=== PATIENT | male | born 1935 | race Caucasian/White ===

== ENCOUNTER 2019-04-19 09:44 | Inpatient (IN) | payer OTHER ==
[~2019-04-19] VITALS: Ht 152.4 cm; Wt 90.9 kg
[2019-04-19 09:45] VITALS: BP 89/58
[2019-04-19] MEDS ORDERED: ALEVE220 MG PO (10:02)
[2019-04-19] MEDS ORDERED: ASPIR 8181 M1 PO (10:02)
[2019-04-19 10:12] LABS: HEMOGLOBIN 12.3 gm/dL (14.0-18.0); MCH 31.8 pg (26.0-34.0); MCHC 34.1 g/dL (28.0-37.0); MCV 93.4 fL (80.0-100.0); PLATELET COUNT 210 thou/uL (150-400); RBC 3.86 mil/uL (4.50-6.00); RDW 14.8 % (10.5-14.5); WBC 10.2 thou/uL (4.0-11.0)
[2019-04-19 10:15] LABS: CALCIUM 8.8 mg/dL (8.5-10.1); CREATININE 1.3 mg/dL (0.7-1.3); POTASSIUM 4.2 mmol/L (3.5-5.1)
[2019-04-19 10:21] LABS: ALBUMIN 3.3 g/dL (3.4-5.0); TOTAL BILIRUBIN 0.7 mg/dL (<0.1-1.0); TOTAL PROTEIN 7.9 g/dL (6.4-8.2)
[2019-04-19 10:24] LABS: APTT 27.5 Seconds (24.5-32.8); INR 1.1; PROTIME 11.4 Seconds (9.3-11.4)
[2019-04-19 11:01] LABS: ATYPICAL LYMPHS 5 %
[2019-04-19 11:02] LABS: ANISOCYTOSIS 1+
[2019-04-19 11:03] LABS: POLYCHROMASIA OCCASIONAL
--- NOTE | 2019-04-19 11:04 | NUR ---
AT BEDSIDE; REPORTS [employer]EL[employer] WILL BE AVAILABLE AT 1230 TODAY
[2019-04-19] MEDS ORDERED: METFORMIN HCL500 MG PO (13:10)
[2019-04-19 13:26] VITALS: BP 124/64
--- NOTE | 2019-04-19 13:34 | NUR ---
PT TO ROOM 352 P EGD
--- NOTE | 2019-04-19 13:55 | 2DMMODE ---
[facility] [place] [place] [address] 2 D/M-MODE ECHOCARDIOGRAM Name: KATHARINE SORIANO Room #: 170-10 ADM IN ..#: [id number] Admission: 04/19/19 Attend Phys: Carloz Perez, Discharge: Date of : 39 Date of Service: 04/19/19 1355 Report #: [id number] THIS REPORT FOR: //name// APPROVED REPORT Study performed: 04/19/2019 13:01:42 EXAM: Comprehensive 2D, Doppler, and color-flow Echocardiogram Patient Location: ER Room #: 10 Status: routine BSA: 2.08 HR: 89 bpm BP: 124/61 mmHg Rhythm: NSR Other Information Study Quality: Adequate Indications Chest Pain 2D Dimensions IVSd: 10.91 (7-11mm) LVOT Diam: 21.09 (18-24mm) LVDd: 39.58 mm PWd: 11.43 (7-11mm) Ascending Ao: 34.26 (22-36mm) LVDs: 28.40 (25-40mm) Aortic Root: 27.16 mm IVC: 14.00 mm Aortic Valve AoV Peak Ilir.: 1.10 m/s AO Peak Gr.: 4.88 mmHg LVOT Max P.05 mmHg LVOT Max V: 0.87 m/s VINCE Vmax: 2.76 cm2 Mitral Valve E/A Ratio: 0.8 MV Decel. Time: 289.32 ms MV E Max Ilir.: 0.78 m/s MV A Ilir.: 1.00 m/s MV PHT: 83.90 ms IVRT: 110.73 ms Pulmonary Valve PV Peak Ilir.: 1.39 m/s PV Peak Gr.: 7.76 mmHg [facility] [place] [address] 2 D/M-MODE ECHOCARDIOGRAM Name: KATHARINE SORIANO Room #: [address] IN ..#: [id number] Admission: 04/19/19 Attend Phys: Carloz Perez, Discharge: Date of : 39 Date of Service: 04/19/19 1355 Report #: [id number] Pulmonary Vein P Vein S: 0.49 m/s P Vein A: 0.30 m/s P Vein D: 0.46 m/s P Vein A Dur.: 83.0 msec P Vein S/D Ratio: 1.07 Tricuspid Valve TR Peak Ilir.: 3.01 m/s TR Peak Gr.: 36.26 mmHg PA Pressure: 40.00 mmHg Left Ventricle The left ventricle is normal size. There is normal LV segmental wall motion. There is normal left ventricular wall thickness. The left ventricular systolic function is normal. The left ventricular ejection fraction is within the normal range. LVEF is 55-60%. Grade I - abnormal relaxation pattern. Right Ventricle The right ventricle is normal size. The right ventricular systolic function is normal. Atria The left atrium size is normal. The right atrium size is normal. Aortic Valve The aortic valve is normal in structure. Trace aortic regurgitation. There is no aortic valvular stenosis. Mitral Valve The mitral valve is normal in structure. Trace to mild mitral regurgitation. No evidence of mitral valve stenosis. Tricuspid Valve The tricuspid valve is normal in structure. There is trace to mild tricuspid regurgitation. Estimated PAP 40 mmHg. There is mild pulmonary hypertension. Pulmonic Valve The pulmonary valve is normal in structure. Trace pulmonic regurgitation. Great Vessels The aortic root is normal in size. IVC is normal in size and collapses >50% with inspiration. [facility] [address] [place] [address] 2 D/M-MODE ECHOCARDIOGRAM Name: KATHARINE SORIANO LYSITE Room #: 170-10 [facility] IN M.R.#: [id number] Admission: 04/19/19 Attend Phys: Carloz Perez, Discharge: Date of : 39 Date of Service: 04/19/19 1355 Report #: [id number] Pericardium There is no pericardial effusion. <Conclusion> The left ventricle is normal size. There is normal left ventricular wall thickness. The left ventricular systolic function is normal. Grade I - abnormal relaxation pattern. The right ventricle is normal size. The left atrium size is normal. The right atrium size is normal. The aortic valve is normal in structure. Trace to mild mitral regurgitation. There is trace to mild tricuspid regurgitation. Estimated PAP 40 mmHg. There is mild pulmonary hypertension. <ELECTRONICALLY SIGNED> By: Tapan Muse MD 04/19/19 1355 1355 1355 Tapan Muse MD /INF
--- NOTE | 2019-04-19 15:13 | EKG ---
[place] [address] [facility] [place] [address] ELECTROCARDIOGRAM REPORT Name: KATHARINE SORIANO Room #: 170-10 ADM IN M.R.#: [id number] Admission: 04/19/19 Attend Phys: Carloz Perez MD Discharge: Date of : 39 Report #: [id number] THIS REPORT FOR: //name// [facility] ED Test Date: 2019-04-19 Test Time: 09:54:51 Pat Name: KATHARINE SORIANO Department: Room: 170 10 Gender: M Physician Assistant Surgery: YANDY : 1935 Requested By: Lavell Sheth Order Number: [id number] MD: Mirza Roger Measurements Intervals [place] Rate: 103 P: 54 OK: 150 QRS: -109 QRSD: 128 T: 32 QT: 359 QTc: 470 Interpretive Statements Sinus tachycardia Right bundle branch block Compared to ECG 08/15/2005 10:46:19 Right bundle-branch block now present Electronically Signed On 04-19-2019 15:12:51 CDT by Mirza Roger [email or web address] <ELECTRONICALLY SIGNED> By: Mirza Roger MD, [facility] 04/19/19 1512 0954 0954 Mirza Roger MD, [facility] /EPI
--- NOTE | 2019-04-19 19:39 | NUR ---
pt admitted from ER for GI bleeding, Pt has EGD done, pt is A&OX3, PT'S VS are stable at this time, pt is continuing IV fluid , pt has 1 time, dark stool , pt denies pain and sob ,
--- NOTE | 2019-04-20 03:51 | NUR ---
PATIENT ALERT AND ORIENTED X4. DENIES PAIN. IV RUNNING AT 125/HR. UP WITH SBA. MOVED TO A BIGGER ROOM TO MAKE ROOM FOR ANOTHER PATIENT. SLEPT MOST OF NIGHT.
[2019-04-20 04:10] VITALS: BP 107/53
[2019-04-20 07:50] VITALS: BP 105/51
[2019-04-20 10:22] LABS: CALCIUM 7.7 mg/dL (8.5-10.1); CREATININE 1.1 mg/dL (0.7-1.3); POTASSIUM 3.7 mmol/L (3.5-5.1)
--- NOTE | 2019-04-20 15:27 | NUR ---
care of pt assumed this am @ ~0700. pt noted to be very sleepy this am, stating that he did not get a good night's sleep last night "with everyone in and out". pt w/ a fair to good appetite for food and fluid today. pt receiving ivf's, and believes he still needs them as the states he is not drinking enought liquid in the day yet to dc the ivf's. pt denies co pain and no soa. pt states he has had no s/s of bleeding today. pt has not had a bm today, but yesterday. pt encouraged to be more active today, getting up to the chair and ambulation in the hallways w/ staff. pt aware of potential impending dc this or Monday. pt visited by numerous family members today.
[2019-04-20 16:00] VITALS: BP 116/47
[2019-04-20 19:58] VITALS: BP 112/54
[2019-04-20 21:44] LABS: URINE BILIRUBIN NEGATIVE (Negative); URINE BLOOD NEGATIVE (Negative); URINE CLARITY CLEAR; URINE COLOR YELLOW; URINE GLUCOSE-RANDOM* NEGATIVE (Negative); URINE KETONES NEGATIVE (Negative); URINE LEUKOCYTES NEGATIVE (Negative); URINE NITRITE NEGATIVE (Negative); URINE PROTEIN (DIPSTICK) NEGATIVE (Negative); URINE SPECIFIC GRAVITY 1.025 (1.005-1.035); URINE UROBILINOGEN 0.2 E.U./dl (0.2-1.0)
[2019-04-20 23:49] VITALS: BP 109/44
[2019-04-21 04:06] VITALS: BP 114/45
--- NOTE | 2019-04-21 04:53 | NUR ---
Pt. feeling tired,weak and sleepy at beginning of shift. Daughters at bedside. Temp of 102.[address] Perez notified and orders received.BC done x2, urine collected and Chest X Ray done. Dr. Perez notified of CXR results. Rocephin and Zithromax IV given. Pt. has been afebrile since. Daughter updated on new order. Denies any pain just not feeling good.No signs of bleeding. Used urinal mostly but has periods of bladder incontinence x 2 during the night. He slept soundly that when he woke up he didn't realize his pad was wet. Bed alarm on for safety. Will continue to monitor.
[2019-04-21 07:49] VITALS: BP 124/53
[2019-04-21 16:28] VITALS: BP 114/61
--- NOTE | 2019-04-21 18:26 | NUR ---
ASSUMED CARE OF PT AT 0700. PT ALERT AND ORIENTED IN NO ACUTE DISTRESS. BACK ON ROOM AIR. CRACKLES TO BASES. AMBULATED AROUND HALLWAY WITH WALKER. MANY FAMILY AT BEDSIDE. GOOD APPETITE. IV ABX INFUSING PER ORDER. CALLS OIUT APPROPRIATELY. PER PHYSICIAN, ANTICIPATE D/C TOMORROW IF REMAINS AFEBRILE. PT PROGRESISNG TOWARD POC GOALS.
[2019-04-21 19:36] VITALS: BP 114/46
[2019-04-22 03:16] VITALS: BP 107/56
[2019-04-22 05:01] LABS: HEMATOCRIT 23.6 % (42.0-52.0); HEMOGLOBIN 8.1 gm/dL (14.0-18.0); MCH 32.6 pg (26.0-34.0); MCHC 34.2 g/dL (28.0-37.0); MCV 95.5 fL (80.0-100.0); RBC 2.48 mil/uL (4.50-6.00); RDW 15.8 % (10.5-14.5); WBC 5.9 thou/uL (4.0-11.0)
--- NOTE | 2019-04-22 05:43 | NUR ---
ASSUMED CARE AT 1900. PT DENIES PAIN, NAUSEA, OR SOB. STATES HE FEELS TIRED AND JUST WANTS TO SLEEP. HAS BEEN AFEBRILE OVERNIGHT. IV FLUIDS INFUSING. FREQUENT URINATION, CARTER IN COLOR. HAS BEEN SR WITH FREQ PAC'S, HR 80-90 OVERNIGHT. NO OTHER CONCERNS, PT WILL LIKELY D/C HOME TODAY, WILL CONTINUE TO MONITOR.
[2019-04-22] MEDS ORDERED: CARAFATE 11 GM/10 M1 PO (07:49)
[2019-04-22 07:50] VITALS: BP 109/51
[2019-04-22] MEDS ORDERED: AZITHROMYCIN 2250 MG PO (07:50)
[2019-04-22] MEDS ORDERED: PANTOPRAZOLE SO40 M1 PO (07:50)
[2019-04-22] MEDS ORDERED: CEFDINIR300 MG PO (07:50)
--- NOTE | 2019-04-22 15:55 | NUR ---
assessment: CM REVIEWED CHART AND MET WITH PATIENT AND HIS TWO DAUGHTERS AT THE BEDSIDE. PT HAD JUST FALLEN ASLEEP AND DAUGHTERS REQUEST TO TALK OUTSIDE THE ROOM HE HAD NOT SLEPT WELL RECENTLY. DAUGHTERS REPORT PT LIVES AT HOME ALONE IN A HOUSE. THEY REPORT HIS THIS PAST DECEMEBER. PT NORMALLY AMBULATES INDEPENDENTLY AND IS INDEPENDENT WITH ADLS. 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 PT HAS ABOUT 3 STEPS WITH NO HANDRAILS TO ENTER THE HOME. PT HAS A MASTER BEDROOM ON THE MAIN LEVEL BUT HAS A VERY HIGH BED SO HE NORMALLY SLEEPS IN A ROOM IN THE BASEMENT WITH ABOUT 14 STEPS WITH HANDRAILS. DAUGHTERS REQUEST SOME PRIVATE DUTY INFORMATION THEY STATE THEY MAY NEED SOMEONE TO HELP OUT FROM TIME TO TIME WITH PATIENT. CM PROVIDED THEM WITH VISITING FREDDY BROCHURES [employer]LL [employer]EN[employer] IN HOME CARE BROCHURE. DAUGHTERS REPORT NO FURTHER QUESTIONS. PT HAS ORDERS TO DISCHARGE HOME TODAY WITH NO NEEDS.
[2019-04-22 15:59] VITALS: BP 109/51
--- NOTE | 2019-04-22 16:06 | PATH ---
[facility] [address] [place] [address] PATHOLOGY RPT PROCEDURE Name: PAULO SPARKS Room #: 364-P ADM IN M.R.#: [id number] Admission: 04/19/19 Date of : 39 Discharge: Report #: [id number] Path Case #: [id number] [facility] Accession Number: [id number] . 01 Material submitted: . PART A: stomach - BIOPSY GASTRITIS R/O H PYLORI PART B: esophagus - BIOPSY DISTAL ESOPHAGUS R/O BARRETTS. Modifiers: distal . 01 Clinical history: . GI bleed, duodenal ulcers, gastric ulcers, esophagitis, pyloric stenosis. . 02 Diagnosis: A. "BX gastritis R/O H. pylori", biopsy: - Gastric mucosa with reactive changes and acute and chronic inflammation. - Negative H. pylori immunohistochemical stain (block A1); control reacted appropriately. . B. "BX distal esophagus R/O De Jesus's", biopsy: - Esophageal squamous mucosa and gastric cardiac type mucosa with acute esophagitis with ulceration and focal intestinal metaplasia, compatible with De Jesus's mucosa; no dysplasia seen. (See comment) . (CLW:cindy; 04/22/2019) QMS/04/22/2019 . 02 Comment: Clinical and endoscopic correlation is required. (CLW:cindy; 04/22/2019) . 02 Electronically signed: . Jane Casillas MD, Pathologist NPI- [id number] . 01 Gross description: . A. Received in formalin labeled "Paulo Sparks BX gastritis rule out H. pylori" is a 1.2 x 0.6 x 0.1 cm aggregate of cr-brown mucosa fragments. The specimen is submitted in A1. . B. Received in formalin labeled "Paulo Sparks BX distal esophagus rule out De Jesus's" is a 0.5 x 0.4 x 0.1 cm fragment of cr-brown mucosa. The specimen is submitted in B1. ([facility] 04/21/2019) SYC/SYC . 02 Pathologist provided ICD-10: K29.00, K22.70, K20.9 . 02 CPT . [address] [address] PATHOLOGY RPT PROCEDURE Name: PAULO SPARKS Room #: 364-P [facility] IN M.R.#: [id number] Admission: 04/19/19 Date of : 39 Discharge: Report #: [id number] Path Case #: [id number] Specimen Comment: A courtesy copy of this report has been sent to Specimen Comment: [phone], . Specimen Comment: Report sent to / DR ROCHA Performed at: [address] [facility], [place] [id number] MD Paresh Blair MD Phone: [phone] Performed at: [address] [id number] MD Tata Guerra MD Phone: [phone]
--- NOTE | 2019-04-22 17:02 | NUR ---
ASSUMED CARE AT SHIFT CHANGE, ALERT AND ORIENTED X4. ASSESMENT DOCUMENTED. DENIES ANY DISCOMFORT. PATIENT WALKED THE HALLWAY WITH WALKER AND HE IS STEADY. VSS. FAMILY ASKED FOR HOME HEALTH, PER DR JONES NOTED PATIENT CAN GO HOME WITH NO NEEDS AND EXPLAINED TO FAMILY. DISCHARGE MEDICATON AND INSTRUCTIONS GIVEN TO FAMILY. PATIENT DISCHARGED HOME.
--- NOTE | 2019-04-24 08:36 | P ---
[facility] [place] [address] [place] [address] [place] [address] PROCEDURE REPORT Name: KATHARINE SORIANO Room #: 364-P [facility] IN M.R.#: [id number] Admission: 04/19/19 Attend Phys: Carloz Perez MD Discharge: 04/22/19 Date of : 37 Report #: [id number] THIS REPORT FOR: //name// CC: Aldo Perez MD DATE OF SERVICE: 04/19/2019 PROCEDURE PERFORMED: Upper endoscopy with biopsies. HISTORY OF PRESENT ILLNESS: The patient is an 83-year-old male with recent melanotic stools, hematemesis, coffee-ground emesis and fatigue. No previous history of GI bleed. He has used NSAIDs on a p.r.n. basis in the past. No previous history of endoscopy. Admit hemoglobin was 12.3, INR 1.1. BUN is elevated at 45, creatinine 1.3. Plan is for upper endoscopy. DESCRIPTION OF PROCEDURE: The risks and benefits of the procedure were explained to the patient, those risks including but not limited to bleeding, perforation, the risk of sedation. He understood these risks and gave informed consent. Sedation was given using propofol per Anesthesia. Next, using a standard Olympus upper endoscope, the scope was placed in the patient's mouth and advanced under direct vision through the esophagus, stomach and into the second portion of the duodenum. The upper and mid esophagus was normal in appearance. In the distal esophagus, grade C erosive esophagitis was noted. No evidence of bleeding, possible short segment of De Jesus's was noted. Biopsies obtained. Overall, the gastric mucosa was normal in the fundus and body; however, in the antrum, a single large prepyloric ulcer was noted. It is approximately 1.2 cm to 1.5 cm in size. There were several dark spots within the ulcer bed, likely source of recent bleed, no visible vessel, no active bleeding. No clots were noted. There was no evidence of blood throughout the exam today. Ulcer was near the pylorus causing a mild stenosis of the pylorus itself. I was able to pass the scope through this area without difficulty without resistance. The duodenal bulb was normal. Multiple superficial ulcers were noted, however, in the first portion of the duodenum, no evidence of bleeding. Second portion of the duodenum was normal. 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 Again, no evidence of blood was noted on exam today. The scope was then brought back up into the patient's stomach and biopsies were obtained to rule out H. pylori. The scope was then withdrawn and the procedure terminated. The patient tolerated the procedure well. IMPRESSION: 1. Grade C erosive esophagitis. 2. 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 3. Large prepyloric ulcer, likely source of recent gastrointestinal bleed. No [facility] [address] [place] [address] PROCEDURE REPORT Name: KATHARINE SORIANO Room #: 364-P DIS IN M.R.#: [id number] Admission: 04/19/19 Attend Phys: Carloz Perez MD Discharge: 04/22/19 Date of : 37 Report #: [id number] evidence of active bleeding at this time. 4. The first portion of the duodenum with multiple superficial ulcers. 5. Duodenal diverticulum. RECOMMENDATIONS: 1. Continue IV PPI drip for the next 24 hours and monitoring hemoglobin closely. 2. We will start a regular diet at this time. 3. We will add Carafate as well. 4. At some point, the patient needs a screening colonoscopy. Thank you for allowing me to participate in his care. <ELECTRONICALLY SIGNED> By: Aldo Patten MD 04/24/19 0836 1534 2349 Aldo Patten MD /nt
== END 2019-04-22 17:14 | disposition home or self-care (01) | DRG 380 ==
LOC: ER 09:44 → EROBS 11:44 → 3W 11:44 → ENTRNSPT 04-22 16:41 → EDTRNSPT 04-22 16:51 → 3W 04-22 17:14
PROVIDERS: Emergency Medicine; ADMIT Family Medicine
PROC: 0DB68ZX Excision of Stomach, Via Natural or Artificial Opening Endoscopic, Diagnostic (ICD-10-PCS; principal; 2019-04-19)
PROC: 0DB28ZX Excision of Middle Esophagus, Via Natural or Artificial Opening Endoscopic, Diagnostic (ICD-10-PCS; principal; 2019-04-19)
DX: K22.11 Ulcer of esophagus with bleeding (principal); J69.0 Pneumonitis due to inhalation of food and vomit; N17.9 Acute kidney failure, unspecified; D62 Acute posthemorrhagic anemia; K57.11 Diverticulosis of small intestine without perforation or abscess with bleeding; K25.4 Chronic or unspecified gastric ulcer with hemorrhage; K26.4 Chronic or unspecified duodenal ulcer with hemorrhage; E11.9 Type 2 diabetes mellitus without complications; K21.0 Gastro-esophageal reflux disease with esophagitis; F17.290 Nicotine dependence, other tobacco product, uncomplicated; Z79.84 Long term (current) use of oral hypoglycemic drugs; Z79.82 Long term (current) use of aspirin; Z79.899 Other long term (current) drug therapy; Z80.0 Family history of malignant neoplasm of digestive organs; Z82.49 Family history of ischemic heart disease and other diseases of the circulatory system
CPT/HCPCS: 10879; 62110; 62900; 70005

== ENCOUNTER → 2019-11-15 | Outpatient (CLI) | payer OTHER ==
[~2019-11-15] MED LIST: ALEVE220 MG PO; ASPIR 8181 M1 PO; AZITHROMYCIN 2250 MG PO; CARAFATE 11 GM/10 M1 PO; CEFDINIR300 MG PO; METFORMIN HCL500 MG PO; PANTOPRAZOLE SO40 M1 PO
== END ==
LOC: SJCVC 14:48 → SJCVCIMAG 14:48
DX: I65.23 Occlusion and stenosis of bilateral carotid arteries (principal); R94.31 Abnormal electrocardiogram [ECG] [EKG]; I21.29 ST elevation (STEMI) myocardial infarction involving other sites; I49.49 Other premature depolarization; I45.10 Unspecified right bundle-branch block; E11.9 Type 2 diabetes mellitus without complications; F17.200 Nicotine dependence, unspecified, uncomplicated; Z79.899 Other long term (current) drug therapy; Z82.49 Family history of ischemic heart disease and other diseases of the circulatory system

== ENCOUNTER 2020-11-23 21:24 | Inpatient (IN) | payer OTHER ==
[~2020-11-23] VITALS: Ht 177.8 cm; Wt 91.2 kg
[2020-11-23 21:31] VITALS: BP 151/76
[2020-11-23 22:04] LABS: ABSOLUTE NEUTROPHILS 4.3 thou/uL (1.4-8.2); BASOPHILS 1.3 % (0.0-2.0); EOSINOPHILS 1.3 % (0.0-3.0); HEMOGLOBIN 15.2 gm/dL (14.0-18.0); LYMPHOCYTES 26.7 % (24.0-44.0); MCH 31.1 pg (26.0-34.0); MCHC 33.8 g/dL (28.0-37.0); MCV 92.1 fL (80.0-100.0); PLATELET COUNT 201 thou/uL (150-400); POLYS 60.7 % (36.0-66.0); RBC 4.89 mil/uL (4.50-6.00); RDW 14.2 % (10.5-14.5); WBC 7.1 thou/uL (4.0-11.0)
[2020-11-23 22:14] LABS: URINE BILIRUBIN NEGATIVE (Negative); URINE BLOOD NEGATIVE (Negative); URINE CLARITY CLEAR; URINE COLOR YELLOW; URINE GLUCOSE-RANDOM* NEGATIVE (Negative); URINE KETONES NEGATIVE (Negative); URINE LEUKOCYTES-REFLEX NEGATIVE (Negative); URINE NITRITE-REFLEX NEGATIVE (Negative); URINE PROTEIN (DIPSTICK) NEGATIVE (Negative); URINE SPECIFIC GRAVITY 1.025 (1.005-1.035); URINE UROBILINOGEN 0.2 E.U./dl (0.2-1.0)
[2020-11-23 22:21] LABS: ALBUMIN 3.5 g/dL (3.4-5.0); CREATININE 1.2 mg/dL (0.7-1.3)
[2020-11-23 22:57] LABS: CALCIUM 8.8 mg/dL (8.5-10.1); TOTAL BILIRUBIN 0.3 mg/dL (0.2-1.0); TOTAL PROTEIN 7.9 g/dL (6.4-8.2)
[2020-11-24] VITALS (15 sets, daily range): BP systolic 17–157; BP diastolic 51–78
--- NOTE | 2020-11-24 03:13 | NUR ---
Pt tranferred from ED on WC by RN with his only possession which is a robe. He is on RA and ambulate to the bed with a steady gait. His admission is completed with consents signed and assessments done. His med rec is done. assessment as charted. Pt is NPO and awaiting further testing today. pt oriented to unit and given welcome packet with security code. Pt placed on SCDs. Pt's primary contact is documented ([place] daughter [phone]). mild complaints of pain with morphine given in ED. no further complaints. all needs and questions answered. continue with plan of care.
--- NOTE | 2020-11-24 06:57 | EKG ---
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: ALEJANDRO : 1935 Requested By: Kari Reyes Order Number: [id number] MD: Jefferson Peoples Measurements Intervals [place] Rate: 77 P: 36 RI: 183 QRS: -85 QRSD: 144 T: 22 QT: 395 QTc: 448 Interpretive Statements Sinus rhythm RBBB and LAFB Compared to ECG 04/19/2019 09:54:51 Left anterior fascicular block now present Sinus tachycardia no longer present Electronically Signed On 11-24-2020 6:57:23 CDT by Jefferson Peoples [email or web address] <ELECTRONICALLY SIGNED> By: Jefferson Peoples MD, [facility] 11/24/20 0657 40 40 Jefferson Peoples MD, [facility] /EPI
--- NOTE | 2020-11-24 10:01 | 2DMMODE ---
[facility] [place] [address] 2 D/M-MODE ECHOCARDIOGRAM Name: KATHARINE SORIANO Geena Room #: 206-P ADM IN M.R.#: [id number] Admission: 11/24/20 Attend Phys: Carloz Perez MD Discharge: Date of : 37 Report #: [id number] THIS REPORT FOR: cc: Carloz Perez MD, Neal A. MD Mi,John Gabriel MD [facility] ~ APPROVED REPORT Study performed: 11/24/2020 09:11:33 EXAM: Comprehensive 2D, Doppler, and color-flow Echocardiogram Patient Location: Echo lab Room #: 206 Status: routine BSA: 2.09 HR: 69 bpm BP: 129/63 mmHg Rhythm: NSR Other Information Study Quality: Fair/off axis apicals Indications Chest pain. Hx: HLP, DM, tobacco abuse. 2D Dimensions IVSd: 9.69 (7-11mm) LVOT Diam: 22.72 (18-24mm) LVDd: 43.70 mm PWd: 9.63 (7-11mm) Ascending Ao: 30.40 (22-36mm) LVDs: 28.82 (25-40mm) Aortic Root: 30.59 mm Aortic Valve AoV Peak Ilir.: 1.09 m/s AO Peak Gr.: 4.79 mmHg LVOT Max P.88 mmHg LVOT Max V: 0.68 m/s VINCE Vmax: 2.54 cm2 Mitral Valve E/A Ratio: 0.7 MV Decel. Time: 193.39 ms MV E Max Ilir.: 0.66 m/s MV A Ilir.: 0.91 m/s [facility] [address] [place] [address] 2 D/M-MODE ECHOCARDIOGRAM Name: KATHARINE SORIANO Geena Room #: 206-P ADM IN [facility].#: [id number] Admission: 11/24/20 Attend Phys: Carloz Perez, Discharge: Date of : 37 Report #: [id number] PHT: 56.08 ms IVRT: 62.28 ms Pulmonary Valve PV Peak Ilir.: 0.71 m/s PV Peak Gr.: 1.99 mmHg Tricuspid Valve TR Peak Ilir.: 3.03 m/s RAP Estimate: 5.00 mmHg TR Peak Gr.: 37.00 mmHg PA Pressure: 42.00 mmHg Left Ventricle The left ventricle is normal size. There is normal left ventricular wall thickness. Left ventricular systolic function is normal. LVEF is 55-60%. Mild diastolic dysfunction is present. Right Ventricle The right ventricle is normal size. The right ventricular systolic function is normal. Atria The left atrium size is normal. The right atrium size is normal. Aortic Valve The aortic valve is normal in structure. Trace aortic regurgitation. There is no aortic valvular stenosis. Mitral Valve The mitral valve is normal in structure. Mild mitral annular calcification. Trace mitral regurgitation. Tricuspid Valve The tricuspid valve is normal in structure. Mild tricuspid regurgitation. Estimated PAP is 40-45mmHg. Pulmonic Valve The pulmonary valve is normal in structure. Trace pulmonic regurgitation. Great Vessels The aortic root is normal in size. The ascending aorta is normal in size. IVC is normal in size and collapses >50% with inspiration. Pericardium [facility] [place] [address] 2 D/M-MODE ECHOCARDIOGRAM Name: CHRISTIEKATHARINE Geena Room #: 206-P [facility] IN M.R.#: [id number] Admission: 11/24/20 Attend Phys: Carloz Perez, Discharge: Date of : 37 Report #: [id number] There is no pericardial effusion. <Conclusion> The left ventricle is normal size. LVEF is 55-60%. The right ventricle is normal size. The left atrium size is normal. The aortic valve is normal in structure. Trace aortic regurgitation. The mitral valve is normal in structure. Mild mitral annular calcification. Trace mitral regurgitation. Mild tricuspid regurgitation. Estimated PAP is 40-45mmHg. Trace pulmonic regurgitation. There is no pericardial effusion. <ELECTRONICALLY SIGNED> By: John Stark MD, FACC 11/24/20 1001 100 1001 John Stark MD, FACC /INF
[2020-11-24 10:27] LABS: CHOLESTEROL 185 mg/dL (<200); HDL CHOLESTEROL 39 mg/dL (>40); LDL CHOLESTEROL 106 mg/dL (<100); TC:HDL 4.7 Ratio (Not establshd); TRIGLYCERIDE 201 mg/dL (<150); VLDL 40 mg/dL (<40)
--- NOTE | 2020-11-24 15:35 | CATHLAB ---
[facility] [place] [address] INVASIVE PROCEDURE REPORT Name: KATHARINE SORIANO Room #: 206-P ADM IN M.R.#: [id number] Admission: 11/24/20 Attend Phys: Carloz Perez MD Discharge: Date of : 37 Report #: [id number] THIS REPORT FOR: cc: Carloz Perez MD, Neal A. MD Mancuso, Gerald M. MD [facility] ~ APPROVED REPORT Study performed: 11/24/2020 12:00:33 Patient Details Patient Status: In-Patient Room #: 206 The patient is a 85 year-old male Event Personnel John Stark [employer], Anais Munoz RTR Monitor, Yoko Kumar RN RN, Kaila Montano RTR, PRINTED CIRCUIT BOARDS INSPECTOR Scrub Procedures Performed Art Access - R femoral artery* Left Heart Cath w/or w/o Coronaries [id number] [facility] Aortogram Abdominal Peripheral Angio 803476 38419 Initial Mod Sed Same Phys/QHP Gr5y 083979 51611 Mod Sed Same Phys/QHP Ea 564203 Hemostasis w/ Mynx Procedure Narrative The Right Groin^ was infiltrated with 1% Lidocaine subcutaneous anesthesia. A PINNACLE 6FR Sheath #[id number] sheath was inserted into the RFA^. Coronary angiography was performed using coronary diagnostic catheters. The right coronary system was accessed and visualized with a JL4 catheter. The left coronary system was accessed and visualized with a JR4 catheter. The left ventricle was accessed and visualized with a PIGTAIL catheter. Left ventriculogram was performed in 30 degree projection. An aortogram of the abdominal aorta was performed. Closure device was deployed with a Fr MYNXGRIP 6/7F #[id number]. The patient tolerated the procedure well and there were no complications associated with the procedure. There was no hematoma. Intraoperative Conscious Sedation Sedation start time: 12:56 Case end Time: 13:23 Fentanyl 50 mcg Versed 1 mg [facility] [address] [place] [address] INVASIVE PROCEDURE REPORT Name: CHAVAELEONORAKATHARINE Geena Room #: 206-P [facility] IN M.R.#: [id number] Admission: 11/24/20 Attend Phys: Carloz Perez, Discharge: Date of : 37 Report #: [id number] Fluoro Time: 1.50 minutes Dose: DAP 5344.30 cGycm2 626 mGy Contrast Type and Amount: Visipaque 100 ml Hemodynamics The aortic pressure is 138/64 mmHg with a mean of 51 mmHg. The left ventricular pressure is 136/6 mmHg with a mean of mmHg. The left ventricular end diastolic pressure is 16 mmHg. Conclusion #1. Left main mildly disease giving rise to LAD and circumflex. #2 LAD with an eccentric 30% lesion off the left main diffuse distal disease proximal calcification is noted no occlusive disease. #3 circumflex OM is large in distribution although nondominant. The first OM is an eccentric lesion of 60 to 70% diffusely diseased first OM and then the second OM is large and also continues off the main circumflex no occlusive disease. #4 a dominant/codominant RCA is relatively small in caliber giving rise to a small PDA. No occlusive disease #5 normal left ventricular size and systolic function lower limits of normal EF 50% range. #6 abdominal aortogram reveals a small infrarenal aortic aneurysm with brisk flow. Single bilateral renal arteries are patent. Recommendations and plan: Continue aggressive risk factor modification. Will follow that small aortic aneurysm by ultrasound outpatient. Etiology of chest pain is noncardiac suspect possible cholelithiasis. <ELECTRONICALLY SIGNED> By: John Stark MD, FACC 11/24/20 1534 1534 1534 John Stark MD, FACC /INF
--- NOTE | 2020-11-24 18:25 | NUR ---
ASSESSMENT CHARTED. PT ALERT AND ORIENTED. VSS. DENIED HAVING PAIN OR DISCOMFORT. HAD CARDIAC CATH THIS AM. RIGHT GROIN INCISION C/D/I. NO HEMATOMA. NPO AFTER MIDNIGHT FOR SURGERY IN AM.
[2020-11-25 00:30] VITALS: BP 123/63
[2020-11-25 04:00] VITALS: BP 126/62
--- NOTE | 2020-11-25 04:53 | NUR ---
SLEPT MOST OF SHIFT. UP TO BATHROOM NEEDED WITH STEADY GAIT. NPO PAST MN FOR AM SURGERY. DENIES COMPLAINTS OF PAIN OR SHORTNESS OF AIR AT THIS TIME. WORKING ON GOALS AND PLAN OF CARE FOR NOC. PROGRESSING TOWARDS GOALS FOR SURGERY THIS AM. CONTINUE TO ASSES CLOSELY.
--- NOTE | 2020-11-25 08:07 | NUR ---
ASSUMED PT CARE AT 0700. PT IN BED, WITH DAUGHTER AT BEDSIDE. PT PREPARING TO GO TO OR SOON. PRE OP CHECKLIST AND CHART IS READY.
--- NOTE | 2020-11-25 09:20 | NUR ---
met with dtr in room patient in sx for lap/norma. Dtr reports patient lies alone in independent home with steps inside. 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 Patient uses no assistive device. PCP Dr Perez. Dtr reports anticipate no needs from casemgt and plans home once stable. [facility] following.
[2020-11-25 12:30] VITALS: BP 165/78
--- NOTE | 2020-11-25 12:34 | NUR ---
PT RETURNED FROM OR. PT DROWSY. PT C/O OF MINOR PAIN IN THE LOWER BACK. PT RATES PAIN AT A 3 BUT FALLS ASLEEP QUICKLY. WILL CONTINUE TO MONITOR PATIENT. PTS VSS. PTS ASSESSMENT UNCHANGED WITH EXCEPTIONS OF POST SURGICAL SITES.
[2020-11-25 15:40] VITALS: BP 132/62
[2020-11-25 20:15] VITALS: BP 144/57
[2020-11-26 00:30] VITALS: BP 104/43
--- NOTE | 2020-11-26 03:25 | NUR ---
1944 PATIENT REMAINS IN BED. ABDOMAN DISTENDED POST LAP SAMI. PAIN MEDICATION GIVEN. COMPLAINTS OF HEARTBURN AND REQUESTING PEPTO. OFFERED LEMON HOPI SODA AND REFUSED. ENCOURAGED TO TURN AND MOVE AROUND TO DECREASE ABDOMANAL DISTENTION. STATES JUST WANTS TO LAY STILL. 2029 PATIENT VERY UPSET AND STILL WITH HEARTBURN. NOTIFING FUEL HANDLER OF STATUS. ORDERS RECIEVED. PATIENT UP IN CHAIR AND WALKING AROUND BED. AGITATED. 2044 SIMETHICONE 2 TABS GIVEN FOR HEARTBURN, ZOFRAN FOR COMFORT. APPOLIGIZED THAT TOOK AWHILE TO GET NEW MEDICATION ORDER AND MED. REASSURED PATIENT AND STRAIGHTENED BED UP FOR COMFORT. ASSISTED BACK TO BED WITH HEAD ELEVATED. STATES HEARTBURN IS GOING AWAY. 2129 RESTING QUIETLY WITHOUT PRESENT COMPLAINTS. 0001 SLEEPING WITHOUT COMPLAINTS. VSS. CONTINUE TO ASSES CLOSELY.
[2020-11-26 04:45] VITALS: BP 114/62
[2020-11-26 07:35] VITALS: BP 131/71
--- NOTE | 2020-11-26 08:19 | NUR ---
SLEPT REST OF SHIFT WITHOUT COMPLAINTS. SIMETHICONE GIVEN THIS AM FOR HEARTBURN STARTING. PATIENT CALM AND RELAXED. DENIES NEED FOR PAIN MEDICATION AT THIS TIME. CONTINUE TO ASSES CLOSELY.
--- NOTE | 2020-11-26 08:25 | NUR ---
ASSUMED PT CARE AT 0700. PT STATES HE HAS SOME HEARTBURN THIS MORNING, NITHIN LAY PM NURSE GAVE PATIENT SOME HEARTBURN RELIEF MEDICATIONS. PT STATES HIS PAIN IS BETTER TODAY AND DOES NOT WANT ANYTHING FOR PAIN. PT STATES HE IS READY TO BE D/C WHENEVER POSSIBLE. PT ASSESSMENT PERFORMED. VSS. WILL CONTINUE TO MONITOR.
[2020-11-26] MEDS ORDERED: HYDROCODON-ACE1 EAC7 PO (09:59)
[2020-11-26] MEDS ORDERED: ASPIRIN325 PO (09:59)
[2020-11-26] MEDS ORDERED: LIPITOR40 MG PO (09:59)
[2020-11-26 11:46] VITALS: BP 124/66
--- NOTE | 2020-11-26 12:47 | NUR ---
chart review. pt hopeful ready to dc today. cm reached out to MD and he will be dc today as long as surgery ok with it. bedside nurse notified by MD of dc today, home no needs.
--- NOTE | 2020-11-26 13:43 | NUR ---
DR MYERS CALLED TO OKAY PATIENT DISCHARGE.
[2020-11-26 13:47] VITALS: BP 124/66
--- NOTE | 2020-11-30 13:07 | PATH ---
[facility] [address] [place] [address] PATHOLOGY RPT PROCEDURE Name: KATHARINE SORIANO Room #: 206-P DIS IN M.R.#: [id number] Admission: 11/24/20 Date of : 39 Discharge: 11/26/20 Report #: [id number] Path Case #: [id number] [facility] Accession Number: [id number] . 01 Material submitted: . PART A: gallbladder - GALLBLADDER PART B: liver - LIVER BIOPSY SEGMENT 5. Modifiers: SEGMENT 5 . 01 Clinical history: . LAPAROSCOPIC CHOLECYSTECTOMY BIOPSY LIVER (CLOSED) CHOLELITHIASIS CHEST PAIN . 02 Diagnosis: A. Gallbladder, excision: - Acute cholecystitis, arising in a background of chronic cholecystitis. - Lithiasis. - Negative for malignancy. . B. Liver, needle biopsy: - Mixed portal inflammation with interlobular/septal bile duct injury and features of acute cholangitis, suggestive of hepatobiliary duct obstruction. - Steatosis (30-40%). - Negative for significant fibrosis. (MLK/db; 11/27/2020) LBQ 11/30/2020 1219 Local . 02 Electronically signed: . Donaldo Ely MD, Pathologist NPI- [id number] . 01 Gross description: . A. Fixative: formalin Labeled: gallbladder Specimen received: partially collapsed Dimensions: 5.5 x 3 x 2.5 cm Serosa: smooth pink-cr Lymph node: not identified Mucosa: velvety-focally congested Average wall thickness: 0.7 cm Calculi: Multiple brown measuring up to 0.6 cm Abnormalities: None . Water Meter Installer body, fundus, and the cystic duct margin in cassette A1. . [address] [address] PATHOLOGY RPT PROCEDURE Name: KATHARINE SORIANO Room #: 206-P DIS IN M.R.#: [id number] Admission: 11/24/20 Date of : 39 Discharge: 11/26/20 Report #: [id number] Path Case #: [id number] B. The specimen is received in formalin, labeled "KATHARINE SORIANO, liver biopsy segment 5" and consist of 3 soft cr tissue cores measuring up to 0.8 x less than 0.1cm entirely submitted in B1.([facility]; 11/25/2020) KIN/KIN 11/25/[address] [place] [address] . 02 Microscopic: . Part B. A needle biopsy of the liver is available for review. The portal tracts are variable, but most are expanded with a mixed inflammatory infiltrate. Lymphocytes, plasma cells, eosinophils and neutrophils are identified. Septal and interlobular bile ducts are noted within the portal tracts examined. Neutrophils are seen transmigrating through the biliary epithelium as well as within the lumen. There is mild to moderate epithelial injury of the bile ducts. Ductular reaction with the typical neutrophilic infiltrate is also identified. . The hepatic parenchyma shows moderate scattered slightly lobular necroinflammatory activity. Occasional apoptotic body formation is seen. Sinusoidal inflammatory cells include clusters of neutrophils, lymphocytes, plasma cells, and occasional eosinophils. Macro and microvesicular steatosis is noted (approximately 30-40%). Large cell change of hepatocytes is focally noted. . The trichrome stain fails to identify significant bridging fibrosis. There is focal portal expansion. The reticulin stain shows an overall intact hepatic reticulin framework pattern. The majority of hepatic plates are of appropriate thickness. There is focal irregular thickening, compatible with localized regeneration. The PAS stain identifies intrahepatocellular cytoplasmic glycogen. The PAS-D stain shows scattered ceroid-laden Kupffer cells, however, PAS-D positive intracytoplasmic hepatocellular globules are not evident. The iron stain is negative. (MLK/db; 11/27/2020) . Special stains: PAS with and without diastase, iron, trichrome, and reticulin (B1) . 02 Pathologist provided ICD-10: K80.12, K75.9, K76.0 . 02 CPT . 416279, 504591, 054712, 708150, 625704, [id number], [id number] Specimen Comment: A courtesy copy of this report has been sent to [phone], [phone]- Specimen Comment: [id number], Specimen Comment: Report sent to ,DR ROCHA / DR BUTLER Performed at: [address], [place], [place] [id number] MD Tutu York MD Phone: [phone] [address] [address] PATHOLOGY RPT PROCEDURE Name: KATHARINE SORIANO Room #: 206-P DIS IN M.R.#: [id number] Admission: 11/24/20 Date of : 39 Discharge: 11/26/20 Report #: [id number] Path Case #: [id number] Performed at: [address], [place] [id number] MD Cyrus Medellin MD Phone: [phone]
== END 2020-11-26 15:09 | disposition home or self-care (01) | DRG 982 ==
LOC: ER 21:24 → EROBS 11-24 01:54 → 2N 11-24 01:54
PROVIDERS: Nurse Practitioner Adult Health; Nurse Practitioner Family; Surgery; ADMIT Family Medicine; ATTEND Family Medicine
PROC: 0FB04ZX Excision of Liver, Percutaneous Endoscopic Approach, Diagnostic (ICD-10-PCS; principal; 2020-11-24)
PROC: 0FT44ZZ Resection of Gallbladder, Percutaneous Endoscopic Approach (ICD-10-PCS; principal; 2020-11-24)
PROC: B410YZZ Fluoroscopy of Abdominal Aorta using Other Contrast (ICD-10-PCS; principal; 2020-11-24)
PROC: 4A023N7 Measurement of Cardiac Sampling and Pressure, Left Heart, Percutaneous Approach (ICD-10-PCS; principal; 2020-11-24)
PROC: B215YZZ Fluoroscopy of Left Heart using Other Contrast (ICD-10-PCS; principal; 2020-11-24)
PROC: B211YZZ Fluoroscopy of Multiple Coronary Arteries using Other Contrast (ICD-10-PCS; principal; 2020-11-24)
DX: I25.10 Atherosclerotic heart disease of native coronary artery without angina pectoris (principal); K80.00 Calculus of gallbladder with acute cholecystitis without obstruction; K74.60 Unspecified cirrhosis of liver; E11.9 Type 2 diabetes mellitus without complications; I65.29 Occlusion and stenosis of unspecified carotid artery; E78.5 Hyperlipidemia, unspecified; K21.9 Gastro-esophageal reflux disease without esophagitis; Z20.822 Contact with and (suspected) exposure to COVID-19; Z80.0 Family history of malignant neoplasm of digestive organs; Z82.49 Family history of ischemic heart disease and other diseases of the circulatory system; Z79.82 Long term (current) use of aspirin; Z79.899 Other long term (current) drug therapy; Z71.6 Tobacco abuse counseling
CPT/HCPCS: 10081; 50010; 50101; 50411; 50555; 50558; 51046; 51489; 52265; 53307; 53310; 53312; 54022; 54118; 55245; 56462; 56525; 56526; 58574; 62110; 62900; 70005

== ENCOUNTER → 2021-03-26 | Outpatient (CLI) | payer OTHER ==
[~2021-03-26] MED LIST changes: +ASPIRIN325 PO; +HYDROCODON-ACE1 EAC7 PO; +LIPITOR40 MG PO
== END ==
LOC: MRI 10:21
PROVIDERS: ATTEND Family Medicine
DX: M47.816 Spondylosis without myelopathy or radiculopathy, lumbar region (principal); M48.061 Spinal stenosis, lumbar region without neurogenic claudication; M48.07 Spinal stenosis, lumbosacral region